=== PATIENT | male | born 1990 | race Caucasian/White ===

== ENCOUNTER 2021-05-25 00:47 | Emergency (ER) | payer BC ==
[~2021-05-25] VITALS: Ht 175.3 cm; Wt 79.4 kg
[2021-05-25 01:06] VITALS: BP_SYST 131
[2021-05-25] MEDS ORDERED: DICYCLOMINE HCL 10 MG/5 ML SOLUTION PO ONE (02:30)
[2021-05-25] MEDS ORDERED: MAG-AL HYDROX/SIMETH 30 ML UDC PO ONE (02:30)
[2021-05-25] MEDS ORDERED: LIDOCAINE VISCOUS 2%, 15 ML UDC MM ONE (02:30)
[2021-05-25 02:38] LABS: EOSINOPHILS # (AUTO) 0.2 K/uL (0.0-0.4); EOSINOPHILS % (AUTO) 3.2 % (0.0-4.0); MONOCYTES # (AUTO) 0.8 K/uL (0.0-1.0)
[2021-05-25 02:48] LABS: BASOPHILS % (AUTO) 0.6 % (0.0-2.0); HEMOGLOBIN 15.1 g/dL (14.0-18.0); LYMPHOCYTES # (AUTO) 1.4 K/uL (1.0-5.5); LYMPHOCYTES % (AUTO) 18.9 % (20.5-51.5); MEAN CORPUSCULAR HEMOGLOBIN 30 pg (27-31); MEAN CORPUSCULAR HGB CONC 35 % (32-36); MEAN CORPUSCULAR VOLUME 86 fL (79.0-98.0); MONOCYTES % (AUTO) 10.4 % (1.7-9.3); NEUTROPHILS # (AUTO) 5.1 K/uL (1.8-7.7); NEUTROPHILS % (AUTO) 66.9 % (40.0-70.0); PLATELET COUNT (AUTO) 184 K/uL (130-430); RED BLOOD CELL COUNT(AUTO) 4.98 MIL/uL (4.2-6.2); RED CELL DISTRIBUTION WIDTH 12.5 % (9.0-15.0); WHITE BLOOD COUNT (AUTO) 7.6 K/uL (4.8-10.8)
[2021-05-25 03:30] LABS: BILIRUBIN,URINE NEGATIVE (NEGATIVE); BLOOD, URINE NEGATIVE (NEGATIVE); CLARITY/URINE CLEAR (CLEAR); COLOR,URINE YELLOW (YELLOW); GLUCOSE,URINE NEGATIVE (NEGATIVE); KETONES,URINE NEGATIVE (NEGATIVE); LEUKOCYTE ESTERASE ,URINE NEGATIVE (NEGATIVE); NITRITE, URINE NEGATIVE (NEGATIVE); PROTEIN URINE NEGATIVE (NEGATIVE)
[2021-05-25] MEDS ORDERED: FAMOTIDINE PF 20 MG/2 ML VIAL IVP ONE (04:00)
[2021-05-25] MEDS ORDERED: MORPHINE 4 MG INJ. 4 MG/ML VIAL IVP ONE (04:00)
[2021-05-25 04:03] LABS: CALCIUM 9.4 mg/dL (8.4-11.0); CREATININE 0.89 mg/dL (0.55-1.30); POTASSIUM 3.6 mmol/L (3.5-5.1)
[2021-05-25 04:18] LABS: ALBUMIN 3.9 g/dL (3.4-4.8); TOTAL BILIRUBIN 0.7 mg/dL (0.0-1.0)
[2021-05-25] MEDS ORDERED: FAMO-132 PO (05:22)
[2021-05-25 06:20] VITALS: BP_SYST 121
== END 2021-05-25 05:35 | disposition home or self-care (01) ==
LOC: SED 00:47
DX: R10.13 Epigastric pain (principal)
CPT/HCPCS: 36415; 80053; 81003; 83690; 85025; 96374; 96375; 99285; J2001